=== PATIENT | male | born 1970 | race Caucasian/White ===

== ENCOUNTER → 2016-08-15 | Outpatient (CLI) | payer OTHER ==
[~2016-08-15] MED LIST: DIAZ-165 PO; MULT-506 PO; ONDA4TAB10 SL
== END | disposition home or self-care (01) ==
LOC: C.LABSPEC 13:43
PROVIDERS: ATTEND Dermatology
DX: L73.9 Follicular disorder, unspecified (principal)

== ENCOUNTER 2016-09-23 11:26 | Emergency (ER) | payer OTHER ==
[~2016-09-23] VITALS: Ht 182.9 cm; Wt 105.7 kg
[~2016-09-23 11:26] MED LIST changes: -DIAZ-165 PO; -ONDA4TAB10 SL
[2016-09-23 11:37] VITALS: TEMP 36.9
[2016-09-23 11:50] VITALS: O2SAT 97
[2016-09-23] MEDS ORDERED: SODIUM CHLORIDE 0.9% 1000ML 1,000 ML IV STA (13:14)
[2016-09-23 13:20] LABS: BASO % 0.2 %; BASO ABS # 0.02 K/uL (0-0.2); COMPLETE YES; EOS % 0.7 %; HEMATOCRIT 44.3 % (42-52); IG% 0.3 %; LYMPH % 21.9 %; LYMPH ABS # 2.12 K/uL (1.2-3.4); MEAN CELL VOLUME 83.6 fL (80-100); MEAN CORPUSCULAR HGB CONC 35.9 g/dl (32-36); MEAN PLATELET VOLUME 10.3 fL (7.4-10.4); MONO % 6.1 %; NEUT % 70.8 %; PLATELET COUNT 243 K/uL (130-400)
[2016-09-23] MEDS ORDERED: DIAZEPAM INJ 5 MG/ML 2 ML CARP IV STA (13:25)
[2016-09-23 13:27] LABS: BUN/CREATININE RATIO 11.6 (10-20); CALCIUM 9.4 mg/dl (8.5-10.1); CREATININE 0.91 mg/dl (0.60-1.40); MAGNESIUM 2.2 mg/dl (1.8-2.4); POTASSIUM 3.6 mmol/L (3.5-5.1)
[2016-09-23 13:37] LABS: THYROID STIMULATING HORMONE 1.01 uIu/ml (0.300-4.500)
[2016-09-23 14:22] VITALS: Ht 182.9 cm; Wt 105.7 kg
--- NOTE | 2016-09-23 15:15 | DIAGNOSTIC IMAGING REPORT ---
MRI OF THE BRAIN WITHOUT IV CONTRAST CLINICAL HISTORY: Headache. Dizziness. COMPARISON STUDY: MRI of the brain dated 08/04/2012. CT of the brain dated 07/13/2012. TECHNIQUE: MRI of the brain was performed utilizing various T1 and T2-weighted sequences in the axial, sagittal, and coronal planes. IV contrast was not administered for this examination. FINDINGS: Brain parenchyma: The brain parenchyma is normal in appearance. There is no hemorrhage or mass effect. There is no restricted diffusion to suggest acute ischemia. Peter-white matter differentiation is preserved. No extra-axial fluid collection is seen. The cerebellar tonsils are normal in configuration. A small calcification is incidentally noted in the right cerebellar hemisphere. This has been seen by CT dated back to 2011 and is of doubtful significance. Ventricles, sulci, and cisterns: Normal in configuration. Pituitary and sella: Unremarkable. Intracranial vasculature: Normal flow voids are maintained at the skull base. Orbits: The bony orbits are grossly intact. Orbital contents are normal in appearance. Sinuses and mastoids: There is mild mucosal thickening within the maxillary antra, right greater the left. The remaining paranasal sinuses and the mastoid air cells are clear. Calvarium: Unremarkable. Cervical cord: Partially visualized cervical spinal cord is normal in morphology and signal intensity. IMPRESSION: No acute intracranial abnormality. Electronically signed by: Romulo Seay M.D. 09/23/2016 3:14 PM Dictated Date/Time: 09/23/2016 3:11 PM
[2016-09-23 16:32] VITALS: BP 132/93; PULSE 64; O2SAT 95
[2016-09-23] MEDS ORDERED: ONDA4TAB10 SL (16:42)
[2016-09-23] MEDS ORDERED: DIAZ-165 PO (16:42)
--- NOTE | 2016-09-23 19:52 | EMERGENCY ROOM VISIT NOTE ---
History Report prepared by Sarah: Gretta Hernández Under the Supervision of: Dr. Brandon Saenz M.D. First contact with patient: 13:14 Chief Complaint: DIZZY Stated Complaint: DIZZY, HEADACHE Nursing Triage Summary: Triage note: pt reports dizziness, headache, nausea and vomitting x 4 days. 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 History of Present Illness The patient is a 46 year old male who presents to the Emergency Room with complaints of persistent dizziness that began four days ago. He currently rates his discomfort as a 4/10 in severity. The patient states that he has a history of meningitis in 2012 with a vestibular dysfunction. He states that at that time he experienced a headache, but states that at the end of the illness he noticed dizziness. The patient states that his symptoms today feel similar to the ending of his meningitis. He states that for four following months after his diagnosis with meningitis he had difficulty ambulation. The patient states that he followed up with neurology, ENT, and therapy. He additionally notes that he had several MRIs. The patient additionally notes nausea, vomiting , and a decrease in appetite. He states that his headache has been intermittent for the past two weeks. The patient states that his headache causes him to tense up. The patient's significant other states that the patient had a dizzy episode at a gas station two weeks ago. The patient describes the dizziness as a room spinning sensation, and additionally notes that it feels like there is water in his head that swishes back and forth. He states that his discomfort is worsened with movement, and alleviated with rest. Pt denies LOC, fevers, chills, diaphoresis, visual changes, neck pain, chest pain, breathing difficulties, abdominal pain, back pain, melena, hematochezia, urinary symptoms, numbness, weakness, lymphadenopathy, rash, or other complaints. Source of History: patient Onset: four days ago Position: other (global) Symptom Intensity: 4/10 Quality: other (dizziness) Timing: other (persistent) Modifying Factors (Worsening): movement Modifying Factors (Relieving): rest Associated Symptoms: + headache, + nausea, + vomiting Review of Systems See HPI for pertinent positives and negatives. A total of ten systems were reviewed and were otherwise negative. Past Medical & Surgical Medical Problems: (1) Viral meningitis Family History Cancer Social History Smoking Status: Never Smoker Alcohol Use: occasionally Drug Use: none Marital Status: in relationship Occupation Status: employed Current/Historical Medications Scheduled Multivitamin (Multivitamin), 1 TAB PO DAILY Ondasetron Odt (Zofran Odt), 4 MG SL Q6H Scheduled PRN Diazepam (Valium), 5 MG PO Q6H PRN for Dizziness or Vertigo Allergies Coded Allergies: No Known Allergies (Verified , 05/31/14) Physical Exam Vital Signs Date Time Temp Pulse Resp B/P Pulse Ox O2 Delivery O2 Flow Rate FiO2 09/23/16 16:32 64 16 132/93 95 Room Air 09/23/16 15:53 65 16 143/108 95 Room Air 09/23/16 14:22 67 17 146/99 99 Room Air 09/23/16 13:11 70 23 136/88 95 Room Air 09/23/16 12:27 67 09/23/16 11:50 97 Room Air 09/23/16 11:37 36.9 76 18 144/115 99 Room Air Physical Exam GENERAL: Awake, alert, well appearing, no distress HENT: Normocephalic, atraumatic. TM's normal. Oropharynx unremarkable. EYES: PERRL. EOMI. Normal conjunctiva. Sclera non-icteric. NECK: Supple. No nuchal rigidity. FROM. No JVD or bruit. RESPIRATORY: CTA CARDIAC: RRR. No murmur. ABDOMEN: Soft, non distended. No tenderness to palpation. No rebound or guarding. No masses. RECTAL: Deferred. MUSCULOSKELETAL: Unremarkable. No edema. No discoloration. Gross motor strength symmetric. NEURO: Lateral nystagmus noted. Positive Rayo-pike to the right. Cranial nerves 2-12 grossly intact. Normal sensorium. No sensory or motor deficits noted. Speech normal. No pronator drift. SKIN: No rash or jaundice noted. LYMPH: No adenopathy. Medical Decision & Procedures ER Provider Diagnostic Interpretation: X ray results as stated below per my interpretation and radiologist interpretation. Other radiology results as stated below per my review and radiologist interpretation MRI OF THE BRAIN WITHOUT IV CONTRAST CLINICAL HISTORY: Headache. Dizziness. COMPARISON STUDY: MRI of the brain dated 08/04/2012. CT of the brain dated 07/13/2012. TECHNIQUE: MRI of the brain was performed utilizing various T1 and T2-weighted sequences in the axial, sagittal, and coronal planes. IV contrast was not administered for this examination. FINDINGS: Brain parenchyma: The brain parenchyma is normal in appearance. There is no hemorrhage or mass effect. There is no restricted diffusion to suggest acute ischemia. Peter-white matter differentiation is preserved. No extra-axial fluid collection is seen. The cerebellar tonsils are normal in configuration. A small calcification is incidentally noted in the right cerebellar hemisphere. This has been seen by CT dated back to 2011 and is of doubtful significance. Ventricles, sulci, and cisterns: Normal in configuration. Pituitary and sella: Unremarkable. Intracranial vasculature: Normal flow voids are maintained at the skull base. Orbits: The bony orbits are grossly intact. Orbital contents are normal in appearance. Sinuses and mastoids: There is mild mucosal thickening within the maxillary antra, right greater the left. The remaining paranasal sinuses and the mastoid air cells are clear. Calvarium: Unremarkable. Cervical cord: Partially visualized cervical spinal cord is normal in morphology and signal intensity. IMPRESSION: No acute intracranial abnormality. Electronically signed by: Romulo Seay M.D. 09/23/2016 3:14 PM Dictated Date/Time: 09/23/2016 3:11 PM Laboratory Results 09/23/16 11:55 Red Blood Count 5.30, Mean Corpuscular Volume 83.6, Mean Corpuscular Hemoglobin 30.0, Mean Corpuscular Hemoglobin Concent 35.9, Mean Platelet Volume 10.3, Neutrophils (%) (Auto) 70.8, Lymphocytes (%) (Auto) 21.9, Monocytes (%) (Auto) 6.1, Eosinophils (%) (Auto) 0.7, Basophils (%) (Auto) 0.2, Neutrophils # (Auto) 6.87, Lymphocytes # (Auto) 2.12, Monocytes # (Auto) 0.59, Eosinophils # (Auto) 0.07, Basophils # (Auto) 0.02 09/23/16 11:55 Test 09/23/16 11:55 White Blood Count 9.70 K/uL (4.8-10.8) Red Blood Count 5.30 M/uL (4.7-6.1) Hemoglobin 15.9 g/dL (14.0-18.0) Hematocrit 44.3 % (42-52) Mean Corpuscular Volume 83.6 fL (80-100) Mean Corpuscular Hemoglobin 30.0 pg (25-34) Mean Corpuscular Hemoglobin Concent 35.9 g/dl (32-36) Platelet Count 243 K/uL (130-400) Mean Platelet Volume 10.3 fL (7.4-10.4) Neutrophils (%) (Auto) 70.8 % Lymphocytes (%) (Auto) 21.9 % Monocytes (%) (Auto) 6.1 % Eosinophils (%) (Auto) 0.7 % Basophils (%) (Auto) 0.2 % Neutrophils # (Auto) 6.87 K/uL (1.4-6.5) Lymphocytes # (Auto) 2.12 K/uL (1.2-3.4) Monocytes # (Auto) 0.59 K/uL (0.11-0.59) Eosinophils # (Auto) 0.07 K/uL (0-0.5) Basophils # (Auto) 0.02 K/uL (0-0.2) RDW Standard Deviation 39.0 fL (36.4-46.3) RDW Coefficient of Variation 12.9 % (11.5-14.5) Immature Granulocyte % (Auto) 0.3 % Immature Granulocyte # (Auto) 0.03 K/uL (0.00-0.02) Erythrocyte Sedimentation Rate 4 mm/hr (0-14) Anion Gap 9.0 mmol/L (3-11) Est Creatinine Clear Calc Drug Dose 124.8 ml/min Estimated GFR () 115.1 Estimated GFR (Non- 99.3 BUN/Creatinine Ratio 11.6 (10-20) Calcium Level 9.4 mg/dl (8.5-10.1) Magnesium Level 2.2 mg/dl (1.8-2.4) Total Bilirubin 0.8 mg/dl (0.2-1) Direct Bilirubin 0.2 mg/dl (0-0.2) Aspartate Amino Transf (AST/SGOT) 22 U/L (15-37) Alanine Aminotransferase (ALT/SGPT) 42 U/L (12-78) Alkaline Phosphatase 62 U/L (45-117) C-Reactive Protein < 0.29 mg/dl (0-0.29) Total Protein 8.7 gm/dl (6.4-8.2) Albumin 4.6 gm/dl (3.4-5.0) Thyroid Stimulating Hormone (TSH) 1.010 uIu/ml (0.300-4.500) Laboratory results reviewed by me Medications Administered Medications (Trade) Dose Ordered Sig/Dg Route Start Time Stop Time Status Last Admin Dose Admin Sodium Chloride (Nss 1000ml) 1,000 ml @ 999 mls/hr Q1H1M STAT IV 09/23/16 13:14 09/23/16 14:14 DC 09/23/16 13:44 999 MLS/HR Diazepam (Valium Inj) 5 mg NOW STAT IV 09/23/16 13:25 09/23/16 13:30 DC 09/23/16 14:21 5 MG ECG Indication: other (dizzy) Rate (beats per minute): 68 Rhythm: normal sinus Findings: no acute ischemic change, no ectopy ED Course 1314: Ordered Sodium Chloride 1000 ml @ 999 mls/hr IV. 1324: The patient was evaluated in room C9. A complete history and physical exam was performed. 1325: Ordered Valium Inj 5 mg IV. 1534: I reevaluated the patient and he is resting comfortably. I discussed all the exam findings with him and I discussed the treatment plan. He is going to have an ambulatory trial and if all goes well, he will be ready for discharge shortly. 1628: I reevaluated the patient and he is resting comfortably. The ambulatory trial went well. He is ready to go home. Medical Decision Prior records/ancillary studies reviewed. Triage Nursing notes reviewed and agree them. The patient's history was concerning for dizziness. Differential diagnosis: Etiologies such as benign positional vertigo, tumor, infection, hypoglycemia, electrolyte abnormalities, cardiac sources, intracerebral event, toxicologic, neurologic, as well as others were entertained. Physical examination: As above. No pathologic nystagmus. ER treatment provided: IV hydration over one hour IV Valium IV Zofran On reassessment the patient felt well. He is able ambulate without significant difficulty. Diagnostics interpretation by me: ECG: Normal sinus rhythm without ischemic change or evidence of dysrhythmia. The labs revealed a normal CBC and chemistry panel. ESR and CRP are negative. TSH negative. It appears the patient had an episode of benign -positional vertigo. The patient has a history of vertigo-like issues after as viral meningitis. He has no fever, white blood cell count elevation, meningeal findings, or significant headache. His MR imaging did not reveal any evidence of stroke. Inflammatory markers are negative making Vasculitis unlikely. I discussed close outpatient follow-up with him and family and they felt comfortable. The patient will be prescribed Zofran and Valium. By the evaluation outlined above emergent etiologies such as infection, hypoglycemia, electrolyte abnormalities, cardiac sources, intracerebral event, toxicologic, neurologic,as well as others were deemed relatively unlikely. The patient's family were informed about the findings as listed above. All questions were answered and they were pleased with the treatment. Return instructions were outlined and the patient was discharged in stable condition. Outpatient prescription management: Valium Zofran Referral: The patient was referred to neurology and ENT for follow-up in 2 to 3 days for a recheck of the current condition. The chart was completed utilizing [employer] Speech voice recognition software. Grammatical errors, random word insertions, pronoun errors, and incomplete sentences are an occasional consequence of this system due to software limitations, ambient noise, and hardware issues. Any formal questions or concerns about the content, text, or information contained within the body of this dictation should be directly addressed to the physician for clarification. Impression Primary Impression: Dizziness Scribe Attestation The scribe's documentation has been prepared under my direction and personally reviewed by me in its entirety. I confirm that the note above accurately reflects all work, treatment, procedures, and medical decision making performed by me. Departure Information Dispostion Home / Self-Care Prescriptions Ondasetron Odt (ZOFRAN ODT) 4 Mg Tab 4 MG SL Q6H for Nausea, #10 TAB Prov: Brandon Saenz MD 09/23/16 Diazepam (Valium) 5 Mg Tab 5 MG PO Q6H Y for Dizziness or Vertigo, #10 TAB Prov: Brandon Saenz MD 09/23/16 Referrals Onel Farmer M.D. (PCP) Forms HOME CARE DOCUMENTATION FORM, IMPORTANT VISIT INFORMATION Patient Instructions My [facility] Additional Instructions DIZZINESS INSTRUCTIONS: DO NOT drive, drink alcohol, operate machinery, or perform dangerous activities today. You were given medications in the ER that can affect your ability to safely function or operate a vehicle. You should not drive or perform any dangerous activities until your symptoms resolve. Valium 5mg: Take 1 pill every 6-8 hours as needed for dizziness or vertigo. Avoid alcohol, operating machinery or dangerous equipment, working on ladders or roofs, DRIVING, or situations where being under the influence may be dangerous Zofran(odansetron) tablets 4mg: Take one and allow it to dissolve in your mouth every four to six hours as needed for nausea or vomiting. Rest and drink plenty of fluids as tolerated. Continue current medications. If you have nausea or vomiting: Once your stomach is settled start with a clear liquid diet (jello, soup broth, etc.) and then advance as tolerated. You should avoid full, heavy meals for about 24 hrs from the time your symptoms resolved. Return to the ER immediately for worsening or persistent dizziness, vomiting, headache, fevers, chest pains, difficulty breathing, black or bloody stools, slurred speech, numbness, weakness, visual changes, worsening of your condition , or as needed. Follow up with ENT and neurology as discussed for a recheck of your current condition. The numbers are listed below.
== END 2016-09-23 17:03 | disposition home or self-care (01) ==
LOC: C.EDB 11:28 → C.EDC 17:03
DX: R42 Dizziness and giddiness (principal)

== ENCOUNTER → 2016-10-02 | Outpatient (CLI) | payer OTHER ==
[~2016-10-02] MED LIST changes: +DIAZ-165 PO; +ONDA4TAB10 SL
== END | disposition home or self-care (01) ==
LOC: C.LABSPEC 12:59
PROVIDERS: ATTEND Dermatology
DX: Z86.19 Personal history of other infectious and parasitic diseases (principal)

== ENCOUNTER → 2016-10-22 | Outpatient (CLI) | payer OTHER ==
[2016-10-22 12:43] LABS: BASO % 0.5 %; BASO ABS # 0.03 K/uL (0-0.2); COMPLETE YES; EOS % 2.8 %; HEMATOCRIT 40.8 % (42-52); IG% 0.5 %; LYMPH % 44.7 %; LYMPH ABS # 2.67 K/uL (1.2-3.4); MEAN CELL VOLUME 82.9 fL (80-100); MEAN CORPUSCULAR HEMOGLOBIN 28.9 pg (25-34); MEAN CORPUSCULAR HGB CONC 34.8 g/dl (32-36); MEAN PLATELET VOLUME 10.7 fL (7.4-10.4); MONO % 10.7 %; NEUT % 40.8 %; PLATELET COUNT 235 K/uL (130-400); RED BLOOD COUNT 4.92 M/uL (4.7-6.1); WHITE BLOOD COUNT 5.97 K/uL (4.8-10.8)
[2016-10-22 12:53] LABS: ALT/SGPT 40 U/L (12-78); AST/SGOT 19 U/L (15-37); BLOOD UREA NITROGEN 24 mg/dl (7-18); BUN/CREATININE RATIO 26.5 (10-20); CALCIUM 8.8 mg/dl (8.5-10.1); CARBON DIOXIDE 27 mmol/L (21-32); CHLORIDE 107 mmol/L (98-107); CHOLESTEROL 182 mg/dl (0-200); CREATININE 0.89 mg/dl (0.60-1.40); GLUCOSE 86 mg/dl (70-99); POTASSIUM 4.1 mmol/L (3.5-5.1); SODIUM 140 mmol/L (136-145)
[2016-10-22 13:05] LABS: ALB/GLOB RATIO 1.5 (0.9-2); ALKALINE PHOSPHATASE 52 U/L (45-117); CHOLESTEROL/HDL RATIO 4.8; HDL CHOLESTEROL 38 mg/dl; LDL CHOLESTEROL CALCULATED 97 mg/dl; TRIGLYCERIDES 234 mg/dl (0-150); VERY LOW DENSITY LIPOPROT CALC 47 mg/dl
[2016-10-22 13:21] LABS: LYME DISEASE AB IGG NEG (NEG)
[2016-10-22 13:24] LABS: LYME DISEASE AB IGM NEG (NEG)
[2016-10-27 22:20] LABS: ANTI-68 kd Ag (HSP-70 Ab) NEGATIVE (NEGATIVE)
== END | disposition home or self-care (01) ==
LOC: C.LABBFT 08:10
PROVIDERS: ATTEND Physician Assistant
DX: Z13.6 Encounter for screening for cardiovascular disorders (principal); Z12.5 Encounter for screening for malignant neoplasm of prostate; H83.09 Labyrinthitis, unspecified ear; H91.21 Sudden idiopathic hearing loss, right ear

== ENCOUNTER → 2016-10-31 | Outpatient (CLI) | payer OTHER ==
[~2016-10-31] MED LIST changes: +GADAVIST IV PRN
--- NOTE | 2016-10-31 09:45 | DIAGNOSTIC IMAGING REPORT ---
MRI brain/internal artery canals BRAIN COMBO FOR IAC CLINICAL HISTORY: HEARING LOSS TECHNIQUE: Multiaxial MRI acquisition COMPARISON STUDY: 09/23/2016 FINDINGS: Diffusion-weighted images are negative for an acute ischemic insult. Signal characteristics of the cerebellar as well as cerebral hemispheres are unremarkable. Sella and patellar parasellar regions are unremarkable. Pituitary is unremarkable. The internal auditory canals are symmetric. There are no abnormal enhancement characteristics. Ventricular system is midline. IMPRESSION: 1. Normal study. 2. Normal internal auditory canals Electronically signed by: Minesh Adams M.D. 10/31/2016 9:43 AM Dictated Date/Time: 10/31/2016 9:37 AM
== END | disposition home or self-care (01) ==
LOC: C.MRI 08:28
PROVIDERS: ATTEND Physician Assistant
DX: H91.21 Sudden idiopathic hearing loss, right ear (principal)

== ENCOUNTER → 2016-12-05 | Outpatient (CLI) | payer OTHER ==
[~2016-12-05] MED LIST changes: -GADAVIST IV PRN
== END | disposition home or self-care (01) ==
LOC: C.LABSPEC 16:41
PROVIDERS: ATTEND Dermatology
DX: Z86.19 Personal history of other infectious and parasitic diseases (principal)

== ENCOUNTER → 2017-03-03 | Outpatient (CLI) | payer OTHER | END | disposition home or self-care (01) | LOC: C.LABSPEC 16:43 | PROVIDERS: ATTEND Dermatology | DX: Z86.19 Personal history of other infectious and parasitic diseases (principal) ==

== ENCOUNTER → 2017-08-26 | Outpatient (CLI) | payer OTHER ==
[~2017-08-26] MED LIST changes: -DIAZ-165 PO; -ONDA4TAB10 SL
== END | disposition home or self-care (01) ==
LOC: C.LABSPEC 12:37
PROVIDERS: ATTEND Dermatology
DX: L08.9 Local infection of the skin and subcutaneous tissue, unspecified (principal)